=== PATIENT | female | born 2000 | race Two or more races ===

== ENCOUNTER 2019-01-14 15:39 | Emergency (ER) | payer SELFPAY ==
[2019-01-14 15:57] VITALS: BP 109/68
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
== END 2019-01-14 17:25 | disposition home or self-care (01) ==
LOC: ER 15:39
DX: S09.90XA Unspecified injury of head, initial encounter (principal); S00.93XA Contusion of unspecified part of head, initial encounter; R49.0 Dysphonia; W22.8XXA Striking against or struck by other objects, initial encounter; F17.210 Nicotine dependence, cigarettes, uncomplicated
CPT/HCPCS: 99283